=== PATIENT | female | born 1990 | race Caucasian/White ===

== ENCOUNTER 2022-02-01 17:05 | Inpatient (IN) | payer MEDICARE, OTHER ==
[~2022-02-01] VITALS: Ht 170.2 cm; Wt 112.0 kg
[2022-02-01 19:33] LABS: HEMOGLOBIN 10.5 gm/dl (12.3-15.3); RED BLOOD COUNT 3.89 M/UL (4.00-5.10); WHITE BLOOD COUNT 10.5 K/UL (4.5-11.0)
[2022-02-03] MEDS ORDERED: HYDROCODON-ACE1 EAC4 PO (21:41)
[2022-02-03] MEDS ORDERED: IBUPROFEN800 MG PO (21:41)
[2022-02-03] MEDS ORDERED: COLACE 100MG C100 MG PO (21:41)
[2022-02-04 06:22] LABS: HEMOGLOBIN 11.3 gm/dl (12.3-15.3)
== END 2022-02-05 15:14 | disposition home or self-care (01) | DRG 807 ==
LOC: GENOP 17:05 → OB 17:42
PROVIDERS: Obstetrics & Gynecology; ADMIT Obstetrics & Gynecology
PROC: 10E0XZZ Delivery of Products of Conception, External Approach (ICD-10-PCS; principal; 2022-02-03)
PROC: 3E033VJ Introduction of Other Hormone into Peripheral Vein, Percutaneous Approach (ICD-10-PCS; 2022-02-03)
PROC: 10907ZC Drainage of Amniotic Fluid, Therapeutic from Products of Conception, Via Natural or Artificial Opening (ICD-10-PCS; 2022-02-03)
PROC: 0UQGXZZ Repair Vagina, External Approach (ICD-10-PCS; 2022-02-03)
PROC: 10H07YZ Insertion of Other Device into Products of Conception, Via Natural or Artificial Opening (ICD-10-PCS; 2022-02-03)
PROC: 4A1HXCZ Monitoring of Products of Conception, Cardiac Rate, External Approach (ICD-10-PCS; 2022-02-03)
PROC: 4A1HXFZ Monitoring of Products of Conception, Cardiac Rhythm, External Approach (ICD-10-PCS; 2022-02-03)
PROC: 3E0R3NZ Introduction of Analgesics, Hypnotics, Sedatives into Spinal Canal, Percutaneous Approach (ICD-10-PCS; 2022-02-03)
PROC: 3E0234Z Introduction of Serum, Toxoid and Vaccine into Muscle, Percutaneous Approach (ICD-10-PCS; 2022-02-03)
DX: O99.213 Obesity complicating pregnancy, third trimester (principal); Z37.0 Single live birth; O71.4 Obstetric high vaginal laceration alone; O26.893 Other specified pregnancy related conditions, third trimester; Z3A.39 39 weeks gestation of pregnancy; E66.9 Obesity, unspecified; Z20.822 Contact with and (suspected) exposure to COVID-19; Z23 Encounter for immunization
CPT/HCPCS: 36415; 81001; 82800; 85014; 85018; 85025; 85461; 86850; 86900; 86901; 90471; 90715; G0378; J2210; J2405; J2590; J2790; J7120; U0003

== ENCOUNTER 2022-02-27 17:13 | Emergency (ER) | payer MEDICARE, OTHER ==
[~2022-02-27 17:13] MED LIST: COLACE 100MG C100 MG PO; HYDROCODON-ACE1 EAC4 PO; IBUPROFEN800 MG PO
[2022-02-27 19:07] LABS: HEMOGLOBIN 12.1 gm/dl (12.3-15.3); RED BLOOD COUNT 4.46 M/UL (4.00-5.10); WHITE BLOOD COUNT 7.1 K/UL (4.5-11.0)
[2022-02-27 19:25] LABS: BUN/CREATININE RATIO 10 (0-10)
[2022-02-27] MEDS ORDERED: ZOFRAN ODT 4 MG4 MG GT (22:07)
== END 2022-02-27 23:04 | disposition home or self-care (01) ==
LOC: ER1 17:13
PROVIDERS: Family Medicine
DX: K75.9 Inflammatory liver disease, unspecified (principal); R07.9 Chest pain, unspecified; Z98.890 Other specified postprocedural states
CPT/HCPCS: 71045; 80053; 81001; 82550; 82553; 83690; 84484; 85025; 85379; 93005; 99285; J7030; Q9967

== ENCOUNTER 2022-02-28 14:33 | Inpatient (IN) | payer MEDICARE, OTHER ==
[~2022-02-28] VITALS: Ht 170.2 cm; Wt 106.6 kg
[~2022-02-28 14:33] MED LIST changes: +ZOFRAN ODT 4 MG4 MG GT
[2022-02-28 15:50] LABS: HEMOGLOBIN 11.6 gm/dl (12.3-15.3); RED BLOOD COUNT 4.34 M/UL (4.00-5.10); WHITE BLOOD COUNT 8.2 K/UL (4.5-11.0)
[2022-02-28 16:36] LABS: BUN/CREATININE RATIO 8 (0-10)
[2022-03-01 08:29] LABS: BUN/CREATININE RATIO 5 (0-10)
[2022-03-01] MEDS ORDERED: HYDROCODON-ACE1 EAC4 PO (11:35)
[2022-03-01] MEDS ORDERED: COLACE100 MG PO (11:35)
== END 2022-03-02 14:50 | disposition home or self-care (01) | DRG 769 ==
LOC: MED SURG 4 15:01
PROVIDERS: Surgery; ADMIT Obstetrics & Gynecology
PROC: 0FT44ZZ Resection of Gallbladder, Percutaneous Endoscopic Approach (ICD-10-PCS; principal; 2022-03-01 10:00)
DX: O99.63 Diseases of the digestive system complicating the puerperium (principal); K85.10 Biliary acute pancreatitis without necrosis or infection; K80.10 Calculus of gallbladder with chronic cholecystitis without obstruction; Z20.822 Contact with and (suspected) exposure to COVID-19; O99.345 Other mental disorders complicating the puerperium; F41.9 Anxiety disorder, unspecified; O99.893 Other specified diseases and conditions complicating puerperium; G44.209 Tension-type headache, unspecified, not intractable; M54.9 Dorsalgia, unspecified; O99.53 Diseases of the respiratory system complicating the puerperium; J30.9 Allergic rhinitis, unspecified; K59.00 Constipation, unspecified; H54.8 Legal blindness, as defined in USA; Z83.3 Family history of diabetes mellitus; Z80.0 Family history of malignant neoplasm of digestive organs; Z83.49 Family history of other endocrine, nutritional and metabolic diseases; Z82.49 Family history of ischemic heart disease and other diseases of the circulatory system; Z79.899 Other long term (current) drug therapy
CPT/HCPCS: 36415; 76705; 80053; 83690; 84702; 85027; J0295; J0690; J1100; J1170; J1885; J2001; J2250; J2270; J2405; J2704; J2710; J3010; J7030; J7120; U0002

== ENCOUNTER 2022-03-02 18:16 | Emergency (ER) | payer MEDICARE, OTHER ==
[~2022-03-02 18:16] MED LIST changes: +COLACE100 MG PO
[2022-03-02 21:03] LABS: BUN/CREATININE RATIO 8 (0-10)
[2022-03-02 21:48] LABS: HEMOGLOBIN 11.2 gm/dl (12.3-15.3); RED BLOOD COUNT 4.15 M/UL (4.00-5.10); WHITE BLOOD COUNT 9.3 K/UL (4.5-11.0)
== END 2022-03-02 22:30 | disposition home or self-care (01) ==
LOC: ER1 18:16
PROVIDERS: Physician Assistant
DX: G89.18 Other acute postprocedural pain (principal); M54.6 Pain in thoracic spine
CPT/HCPCS: 71045; 80053; 83690; 85025; 96374; 96375; 96376; 99284; J2270; J2405; Q9967